=== PATIENT | male | born 1930 | race Asian ===

== ENCOUNTER 2017-09-24 18:22 | Inpatient (IN) | payer MEDICARE, OTHER ==
[~2017-09-24] VITALS: Ht 177.8 cm; Wt 54.0 kg
[~2017-09-24 18:22] MED LIST: ACET-784 PO; BISA10S PR; CIPR-278 PO; DONE10TA8 PO; DSS100 PO; HYDR-3965 PO; MEMA10TA11 PO; METO25 PO; METR500 PO; MOM30 PO; MORP2SYR IVP; ONDA220I IV; PANT40TA25 PO; RISP.5 PO; TERA2 PO; ZOLP5 PO
[2017-09-24 19:23] LABS: BASOPHILS % (AUTO) 0.7 % (0.0-2.0); EOSINOPHILS % (AUTO) 0.9 % (1.0-6.0); HEMATOCRIT 32.2 % (41-53); HEMOGLOBIN 10.3 g/dL (13.5-17.5); LYMPHOCYTES # (AUTO) 1.9 K/uL (1.0-4.8); LYMPHOCYTES % (AUTO) 17.3 % (22.0-44.0); MEAN CORPUSCULAR HGB CONC 31.8 G/dL (31.0-37.0); MEAN CORPUSCULAR VOLUME 72 fL (80-100); MONOCYTES # (AUTO) 0.6 K/uL (0.1-1.0); MONOCYTES % (AUTO) 5.9 % (2.0-9.0); NEUTROPHILS # (AUTO) 8.1 K/uL (1.8-7.7); NEUTROPHILS % (AUTO) 75.2 % (40.0-70.0); PLATELET COUNT (AUTO) 166 K/uL (150-450); RED BLOOD CELL COUNT(AUTO) 4.47 MIL/uL (4.50-5.90); RED CELL DISTRIBUTION WIDTH 16.4 % (11.5-14.5); WHITE BLOOD COUNT (AUTO) 10.7 K/uL (4.5-11.0)
[2017-09-24 19:34] LABS: CALCIUM, TOTAL 8.4 mg/dL (8.8-10.5); CREATININE 1.63 mg/dL (0.60-1.30)
[2017-09-24 19:39] LABS: ALBUMIN 2.7 g/dL (3.4-5.0); BILIRUBIN,TOTAL 0.3 mg/dL (0.1-1.0); TOTAL PROTEIN, SERUM 7.8 g/dL (6.4-8.2)
[2017-09-24 19:43] LABS: INFLUENZA TYPE B NEGATIVE FOR TYPE B (NEGATIVE)
[2017-09-24 20:07] LABS: APPEARANCE,URINE TURBID (CLEAR); GLUCOSE, URINE (UA) NEGATIVE (NEGATIVE); KETONES,URINE TRACE mg/dL (NEGATIVE); LEUKOCYTE ESTERASE ,URINE LARGE (NEGATIVE); OCCULT BLOOD,URINE LARGE (NEGATIVE); PH,URINE 8.5 (5.0-8.0); PROTEIN,URINE SEE CONFIRM (NEGATIVE)
[2017-09-24 20:13] LABS: SULFOSALICYLIC ACID,URINE 3+ (Negative)
[2017-09-24 20:14] LABS: RBC,URINE 51-100 /HPF (0-2); SQUAMOUS EPITHELIAL CELL,UR Few /LPF (None Seen); WBC,URINE 51-100 /HPF (0-5)
[2017-09-24] MEDS ORDERED: CefTRIAXone 1 GM/DEXTROSE 50 ML IV ONE (20:30)
[2017-09-24] MEDS ORDERED: SODIUM CHLORIDE 0.9% 1,000 ML IV ONE (20:30)
[2017-09-24] MEDS ORDERED: AZITHROMYCIN 500 MG/NS 250 ML IV ONE (20:30)
[2017-09-24] MEDS ORDERED: ONDANSETRON HCL 4 MG/2 ML VIAL IVP PRN (20:45)
[2017-09-24] MEDS ORDERED: ACETAMINOPHEN 325 MG TABLET PO PRN (20:45)
[2017-09-24] MEDS ORDERED: 0.9% SODIUM CHLORIDE 10 ML SYRINGE IVP PRN (20:45)
[2017-09-24 21:04] LABS: RBC MORPHOLOGY COMMENT ABNORMAL RBC MORPH
[2017-09-24 21:15] VITALS: BP 108/58
[2017-09-24] MEDS ORDERED: HALOPERIDOL 5 MG TABLET PO ONE (23:45)
[2017-09-25] VITALS: BP 138/64
[2017-09-25] MEDS ORDERED: OxyCODONE HCL/ACETAMINOPHEN 5-325 MG TABLET PO PRN ×2 (01:30)
[2017-09-25] MEDS ORDERED: ONDANSETRON HCL 4 MG/2 ML VIAL IVP PRN (01:30)
[2017-09-25] MEDS ORDERED: 0.9% SODIUM CHLORIDE 10 ML SYRINGE IVP PRN (01:30)
[2017-09-25] MEDS: DOCUSATE SODIUM 100 MG CAPSULE PO SCH ×3 (01:51→19:59)
[2017-09-25] MEDS: SODIUM CHLORIDE 0.9% 1,000 ML IV SCH ×3 (01:52→21:15)
[2017-09-25 03:30] VITALS: BP 141/68
[2017-09-25 07:53] VITALS: BP 134/59
[2017-09-25] MEDS: METOPROLOL TARTRATE 25 MG TABLET PO SCH (08:23)
[2017-09-25] MEDS: PANTOPRAZOLE SODIUM 40 MG/VIAL IVP SCH (08:23)
[2017-09-25] MEDS: MEMANTINE HCL 10 MG TABLET PO SCH (08:24)
[2017-09-25] MEDS ORDERED: LORazepam 2 MG/ML VIAL IVP PRN (14:45)
[2017-09-25] MEDS ORDERED: LORazepam 2 MG/ML VIAL IM PRN (14:45)
[2017-09-25 15:30] VITALS: BP 122/77
[2017-09-25 19:16] VITALS: BP 161/72
[2017-09-25] MEDS: CefTRIAXone 1 GM/DEXTROSE 50 ML IV SCH (19:59)
[2017-09-25] MEDS: DONEPEZIL HCL 10 MG TABLET PO SCH (19:59)
[2017-09-25 23:44] VITALS: BP 137/65
[2017-09-26 04:49] VITALS: BP 152/79
[2017-09-26 07:35] VITALS: BP 135/72
[2017-09-26 08:15] LABS: BASOPHILS % (AUTO) 1.8 % (0.0-2.0); EOSINOPHILS % (AUTO) 4.4 % (1.0-6.0); HEMATOCRIT 34.8 % (41-53); HEMOGLOBIN 11.1 g/dL (13.5-17.5); LYMPHOCYTES % (AUTO) 30.6 % (22.0-44.0); MEAN CORPUSCULAR HEMOGLOBIN 23.5 pg (26.0-34.0); MEAN CORPUSCULAR VOLUME 73 fL (80-100); MONOCYTES # (AUTO) 0.7 K/uL (0.1-1.0); MONOCYTES % (AUTO) 10.6 % (2.0-9.0); NEUTROPHILS # (AUTO) 3.4 K/uL (1.8-7.7); NEUTROPHILS % (AUTO) 52.6 % (40.0-70.0); PLATELET COUNT (AUTO) 153 K/uL (150-450); RED BLOOD CELL COUNT(AUTO) 4.73 MIL/uL (4.50-5.90); RED CELL DISTRIBUTION WIDTH 16.5 % (11.5-14.5); WHITE BLOOD COUNT (AUTO) 6.5 K/uL (4.5-11.0)
[2017-09-26 08:34] LABS: ANION GAP 8 mmol/L (8-16); CALCIUM, TOTAL 8.4 mg/dL (8.8-10.5); CARBON DIOXIDE 24 mmol/L (22-29); CHLORIDE 107 mmol/L (98-107); CREATININE 1.01 mg/dL (0.60-1.30); GLOMERULAR FILTR. RATE CALC > 60 mL/min (>60); POTASSIUM 3.9 mmol/L (3.5-5.1); SODIUM SERUM 139 mmol/L (136-145); UREA NITROGEN, BLOOD 13 mg/dL (7-18)
[2017-09-26] MEDS: MEMANTINE HCL 10 MG TABLET PO SCH (08:58)
[2017-09-26] MEDS: PANTOPRAZOLE SODIUM 40 MG/VIAL IVP SCH (08:58)
[2017-09-26] MEDS: DOCUSATE SODIUM 100 MG CAPSULE PO SCH ×2 (08:58→19:53)
[2017-09-26] MEDS: METOPROLOL TARTRATE 25 MG TABLET PO SCH (09:00)
[2017-09-26 11:30] VITALS: BP 124/70
[2017-09-26 15:01] VITALS: BP 124/79
[2017-09-26 19:20] VITALS: BP 116/62
[2017-09-26] MEDS: DONEPEZIL HCL 10 MG TABLET PO SCH (19:53)
[2017-09-26] MEDS: CefTRIAXone 1 GM/DEXTROSE 50 ML IV SCH (19:53)
[2017-09-27 00:34] VITALS: BP 118/61
[2017-09-27 05:24] VITALS: BP 152/71
[2017-09-27 07:52] VITALS: BP 149/72
[2017-09-27 08:54] VITALS: BP 139/66
[2017-09-27] MEDS: MEMANTINE HCL 10 MG TABLET PO SCH (08:56)
[2017-09-27] MEDS: DOCUSATE SODIUM 100 MG CAPSULE PO SCH (08:57)
[2017-09-27] MEDS: METOPROLOL TARTRATE 25 MG TABLET PO SCH (08:57)
[2017-09-27] MEDS: PANTOPRAZOLE SODIUM 40 MG/VIAL IVP SCH (09:07)
== END 2017-09-27 11:34 | DRG 682 ==
LOC: EMS 18:26 → 6N 20:54
PROVIDERS: ADMIT Internal Medicine; ATTEND Internal Medicine
DX: N17.0 Acute kidney failure with tubular necrosis (principal); E43 Unspecified severe protein-calorie malnutrition; J18.9 Pneumonia, unspecified organism; N39.0 Urinary tract infection, site not specified; D64.9 Anemia, unspecified; E86.0 Dehydration; F03.90 Unspecified dementia, unspecified severity, without behavioral disturbance, psychotic disturbance, mood disturbance, and anxiety; Z68.1 Body mass index [BMI] 19.9 or less, adult; I10 Essential (primary) hypertension
CPT/HCPCS: 83605; 87040; 87081; 87086; 87804; 96365; 96375; 99285; C9113; J0456; J0696; J2060; J7030